=== PATIENT | male | born 1950 | race Caucasian/White ===

== ENCOUNTER 2018-04-06 02:14 | Outpatient (CLI) | payer MEDICARE ==
[~2018-04-06 02:14] MED LIST: ASPI-529 PO; FLUT1DIS4 INH; GLIP10TA11 PO; INSU100V12 SQ; METF-436 PO; METO100T7 PO; PIOG15TA8 PO; SIMV20TA5 PO
== END 2018-04-06 23:59 | disposition home or self-care (01) ==
LOC: DIABETIC 02:14
PROVIDERS: ATTEND Specialist
DX: E11.65 Type 2 diabetes mellitus with hyperglycemia (principal); J45.909 Unspecified asthma, uncomplicated; Z79.899 Other long term (current) drug therapy; Z79.82 Long term (current) use of aspirin
CPT/HCPCS: G0108

== ENCOUNTER 2018-07-07 03:22 | Outpatient (CLI) | payer MEDICARE ==
[~2018-07-07 03:22] MED LIST changes: +HYDR-3965 PO
== END 2018-07-07 23:59 | disposition home or self-care (01) ==
LOC: DIABETIC 03:22
PROVIDERS: ATTEND Specialist
DX: E11.65 Type 2 diabetes mellitus with hyperglycemia (principal); I25.2 Old myocardial infarction; J45.909 Unspecified asthma, uncomplicated; Z79.84 Long term (current) use of oral hypoglycemic drugs; Z79.4 Long term (current) use of insulin
CPT/HCPCS: G0108

== ENCOUNTER 2019-09-28 08:38 | Inpatient (IN) | payer MEDICARE ==
[~2019-09-28] VITALS: Ht 167.6 cm; Wt 97.7 kg
[~2019-09-28 08:38] MED LIST changes: -HYDR-3965 PO; +SIMV-42 PO; -SIMV20TA5 PO
--- NOTE | 2019-09-28 08:55 | NUR ---
EKG EVALUATED BY MD FREGOSO, PT STATUS CHANGED TO LEVEL 2 AND TO HAVE REPEAT EKG. PT TO BE ROOMED IN BED 5
[2019-09-28] MEDS ORDERED: albuterol 2.5 MG/3 ML nebule CONTNEB PRN ×2 (09:10→13:00)
[2019-09-28] MEDS ORDERED: furosemide 10 MG/1 ML 10ml inj IV ONE (09:10)
[2019-09-28] MEDS ORDERED: acetaminophen 325mg tablet PO ONE ×2 (09:15)
[2019-09-28 09:22] LABS: BASOPHILS % (AUTO) 0.5 % (0-1); EOSINOPHILS % (AUTO) 0.4 % (0-6); HEMATOCRIT 45.3 % (42.0-52.0); HEMOGLOBIN 15.8 g/dl (14.0-17.9); LYMPHOCYTES # (AUTO) 0.5 X10'3 (1.1-4.8); MEAN CORPUSCULAR HEMOGLOBIN 30.3 PG (27.0-31.0); MEAN CORPUSCULAR HGB CONC 34.8 g/dL (33.0-36.5); MEAN CORPUSCULAR VOLUME 87.1 FL (78-98); MEAN PLATELET VOLUME 8.2 FL (7.4-10.4); MONOCYTES # (AUTO) 0.8 X10'3 (0-0.9); MONOCYTES % (AUTO) 9.1 % (2-12); NEUTROPHILS # (AUTO) 7.1 X10'3 (1.8-7.7); PLATELET COUNT 157 X10'3 (140-440); RED CELL DISTRIBUTION WIDTH 14.3 % (11.5-14.5); WHITE BLOOD COUNT 8.5 X10'3 (4.5-11.0)
[2019-09-28 09:37] LABS: ALANINE AMINOTRANSFERASE 57 U/L (12-78); ALBUMIN/GLOBULIN RATIO 1.3 (1.1-1.5); ALKALINE PHOSPHATASE 59 IU/L (46-116); ANION GAP 12 (8-16); ASPARTATE AMINO TRANSFERASE 30 U/L (10-37); BILIRUBIN,TOTAL 0.8 MG/DL (0.1-1.0); BLOOD UREA NITROGEN 12 MG/DL (7-18); BUN/CREATININE RATIO 11.4 (5.4-32.0); CALCIUM 8.8 MG/DL (8.5-10.1); CHLORIDE 105 MMOL/L (99-107); CREATININE 1.05 MG/DL (0.60-1.10); GLUCOSE 170 MG/DL (70-104); POTASSIUM 3.8 MMOL/L (3.5-5.1); SODIUM 143 MMOL/L (135-145); TOTAL CARBON DIOXIDE 26.5 MMOL/L (24-32); TOTAL PROTEIN 7.2 G/DL (6.4-8.2); eGFR 70 ML/MIN
[2019-09-28] MEDS ORDERED: CefTRIAXone/D5W-Rocephin 1gm 50 ML IV ONE (09:40)
[2019-09-28] MEDS ORDERED: normal saline 1000ml 1,000 ML IV ONE (09:42)
[2019-09-28] MEDS ORDERED: oseltamivir phos 75mg capsule PO ONE (12:55)
[2019-09-28] MEDS ORDERED: acetaminophen 325mg tablet PO PRN ×2 (13:20)
[2019-09-28] MEDS ORDERED: magnesium 4gm in 100ml NS 100 ML IV PRN (13:20)
[2019-09-28] MEDS ORDERED: metoclopramide 5 mg/ml inj IV PRN (13:20)
[2019-09-28] MEDS ORDERED: acetaminophen 650mg rectal suppository RC PRN (13:20)
[2019-09-28] MEDS ORDERED: HYDROcodone/acetaminophen 10/325mg tab PO PRN (13:20)
[2019-09-28] MEDS ORDERED: magnesium 2GM in 50ml NS 50 ML IV PRN (13:20)
[2019-09-28] MEDS ORDERED: ondansetron/PF 4mg/2ml inj IV PRN (13:20)
[2019-09-28] MEDS ORDERED: magnesium hydroxide 30ml (MOM) UD suspension PO PRN (13:20)
[2019-09-28] MEDS ORDERED: HYDROcodone/acetaminophen 5mg/325mg tablet PO PRN (13:20)
[2019-09-28] MEDS ORDERED: potassium Cl 20 mEq SR tablet PO PRN (13:20)
[2019-09-28] MEDS ORDERED: potassium CL 10mEq/100ml bag 100 ML IV PRN ×2 (13:20)
[2019-09-28] MEDS ORDERED: magnesium Cl slow-release 64mg tablet PO PRN (13:20)
[2019-09-28] MEDS ORDERED: mag hydrox/Alum hydrox/simeth 30ml oral suspension PO PRN (13:20)
[2019-09-28] MEDS ORDERED: bisacodyl 10mg suppository rectal RC PRN (13:20)
[2019-09-28] MEDS ORDERED: ATOR-2 PO (13:27)
[2019-09-28] MEDS: normal saline 1000ml 1,000 ML IV SCH ×2 (13:46→22:00)
--- NOTE | 2019-09-28 14:00 | NUR ---
Report received on patient in ED5 from Carmen MUELLER, patient to be admitted to PCU 3009. Report received and all questions answered. Awaiting patient arrival on unit.
--- NOTE | 2019-09-28 14:13 | NUR ---
Patient admitted to PCU 3009. at bedside with patient. Patient was able to stand and transfer from ED gurney to bed with 1 person assist. Placed in droplet precautions. Patient oriented to room and call light use. Admit VS taken, stable at this time. 2 RN skin check performed, MRSA swab taken. IV fluids infusing at ordered rate. Patient has no complaints at this time, will continue to monitor.
[2019-09-28 14:15] VITALS: BP 142/44
--- NOTE | 2019-09-28 16:16 | NUR ---
Paged hospitalist, Dr. Boyle, regarding patient. PAGER ID: [phone] MESSAGE: Cheri delatorre [phone]. RE Keyla Mukherjee9. Pt very wheezy/SOB, can we reorder neb treatments for him? Thanks!
--- NOTE | 2019-09-28 16:26 | NUR ---
Patient had EKG ordered for 1447, was in process of admitting patient to unit. EKG was not performed, paged psychology tech at this time to obtain EKG.
--- NOTE | 2019-09-28 16:27 | NUR ---
Paged RT regarding patient, has PRN nebs ordered, paged RT to come administer.
--- NOTE | 2019-09-28 16:43 | NUR ---
Paged hospitalist, Dr. Boyle, regarding patient. PAGER ID: [phone] MESSAGE: Cheri Orozco [phone]. RE Keyla Muhkerjee9. Pt has hx of DM2, HgbA1c 6.2 here. Did you want to start him on the DM protocol? Thanks!
[2019-09-28] MEDS: ipratropium/albuterol 3ml nebule NEB PRN (16:52)
--- NOTE | 2019-09-28 16:59 | NUR ---
Patient has had two small episodes of emesis since arriving on unit, offered patient Zofran multiple times and he has declined medications at this time. Will continue to monitor.
[2019-09-28] MEDS ORDERED: MESSAGE TO PHARMACY PO ONE (17:05)
[2019-09-28] MEDS ORDERED: glucagon, human recombinant 1mg kit SUBCUT PRN (17:05)
[2019-09-28] MEDS ORDERED: dextrose ORAL solution 15 GM/59 ML bottle PO PRN ×2 (17:05)
[2019-09-28] MEDS ORDERED: dextrose 50%-water 50ml dispensing syringe IV PRN ×2 (17:05)
[2019-09-28 18:00] VITALS: BP 126/48
--- NOTE | 2019-09-28 18:20 | NUR ---
Patient in room PCU 3009. I have received report from Cheri MUELLER and had the opportunity to ask questions and assume patient care.
--- NOTE | 2019-09-28 18:35 | NUR ---
Problems reprioritized. Patient report given, questions answered & plan of care reviewed with Boaz RN.
[2019-09-28] MEDS: ipratropium/albuterol 3ml nebule NEB SCH ×2 (19:22→23:11)
[2019-09-28] MEDS: K and/or MAG REPLACEMENT MC SCH (20:00)
[2019-09-28] MEDS: insulin glargine (Lantus) pen - multi-dose SQ SCH (21:00)
[2019-09-28] MEDS ORDERED: temazepam 15mg capsule PO PRN (21:00)
[2019-09-28] MEDS ORDERED: insulin glargine (Lantus) pen - multi-dose SQ SCH (21:00)
[2019-09-28] MEDS: aspirin 81mg tablet.DR PO SCH (21:59)
[2019-09-28] MEDS: oseltamivir phos 75mg capsule PO SCH (21:59)
[2019-09-28 22:00] VITALS: BP 139/60
[2019-09-29 02:00] VITALS: BP 146/72
[2019-09-29] MEDS: ipratropium/albuterol 3ml nebule NEB PRN (02:48)
[2019-09-29 06:00] VITALS: BP 143/64
--- NOTE | 2019-09-29 06:13 | NUR ---
Problems reprioritized. Patient report given, questions answered & plan of care reviewed with Cheri MUELLER.
--- NOTE | 2019-09-29 06:20 | NUR ---
Problems reprioritized. Patient report given, questions answered & plan of care reviewed with Patricia MUELLER. Addendum: 09/29/19 at 0620 by Boaz Rea RN Disregard this note.
--- NOTE | 2019-09-29 06:21 | NUR ---
Patient in room PCU 3009. I have received report from Boaz MUELLER and had the opportunity to ask questions and assume patient care. Patient laying in bed, no signs of distress, at bedside. No complaints at this time, IV NS infusing at ordered rate, will continue to monitor.
[2019-09-29 06:24] LABS: BASOPHILS % (AUTO) 0.4 % (0-1); EOSINOPHILS % (AUTO) 0.1 % (0-6); HEMATOCRIT 38.7 % (42.0-52.0); HEMOGLOBIN 13.7 g/dl (14.0-17.9); LYMPHOCYTES # (AUTO) 0.7 X10'3 (1.1-4.8); LYMPHOCYTES % (AUTO) 15.5 % (21-51); MEAN CORPUSCULAR HGB CONC 35.5 g/dL (33.0-36.5); MEAN CORPUSCULAR VOLUME 87.2 FL (78-98); MEAN PLATELET VOLUME 8.1 FL (7.4-10.4); MONOCYTES # (AUTO) 0.5 X10'3 (0-0.9); MONOCYTES % (AUTO) 10.7 % (2-12); NEUTROPHILS # (AUTO) 3.5 X10'3 (1.8-7.7); NEUTROPHILS % (AUTO) 73.3 % (42-75); PLATELET COUNT 125 X10'3 (140-440); RED BLOOD COUNT 4.43 X10'6 (4.70-6.10); WHITE BLOOD COUNT 4.7 X10'3 (4.5-11.0)
[2019-09-29 06:36] LABS: ALANINE AMINOTRANSFERASE 48 U/L (12-78); ALBUMIN 3.2 G/DL (3.4-5.0); ALBUMIN/GLOBULIN RATIO 1.1 (1.1-1.5); ALKALINE PHOSPHATASE 47 IU/L (46-116); ANION GAP 9 (8-16); ASPARTATE AMINO TRANSFERASE 30 U/L (10-37); BILIRUBIN,TOTAL 0.8 MG/DL (0.1-1.0); BLOOD UREA NITROGEN 10 MG/DL (7-18); BUN/CREATININE RATIO 10.6 (5.4-32.0); CALCIUM 8.2 MG/DL (8.5-10.1); CHLORIDE 105 MMOL/L (99-107); CHOL/HDL RATIO 2.8 (0.00-4.99); CHOLESTEROL 69 MG/DL (0-200); CREATININE 0.94 MG/DL (0.60-1.10); GLUCOSE 187 MG/DL (70-104); HDL CHOLESTEROL 25 MG/DL (35-60); LDL CHOLESTEROL 32 MG/DL (50-100); MAGNESIUM 1.5 MG/DL (1.5-2.4); PHOSPHORUS 3.3 MG/DL (2.3-4.5); POTASSIUM 3.4 MMOL/L (3.5-5.1); SODIUM 140 MMOL/L (135-145); TOTAL CARBON DIOXIDE 25.6 MMOL/L (24-32); TOTAL PROTEIN 6.2 G/DL (6.4-8.2); TRIGLYCERIDES 70 MG/DL (20-135); eGFR 80 ML/MIN
[2019-09-29] MEDS: ipratropium/albuterol 3ml nebule NEB SCH ×5 (06:53→23:34)
[2019-09-29] MEDS: CefTRIAXone/D5W-Rocephin 1gm 50 ML IV SCH (07:33)
[2019-09-29] MEDS: oseltamivir phos 75mg capsule PO SCH ×2 (07:35→19:22)
[2019-09-29] MEDS: aspirin 81mg tablet.DR PO SCH ×2 (07:36→19:22)
[2019-09-29] MEDS: metoprolol succinate 25mg (24-HOUR) SR. Tablet PO SCH (07:37)
[2019-09-29] MEDS: enoxaparin 40mg/0.4ml syringe SQ SCH (07:37)
[2019-09-29] MEDS: potassium Cl 20 mEq SR tablet PO PRN ×3 (07:49→21:46)
[2019-09-29] MEDS: K and/or MAG REPLACEMENT MC SCH ×2 (07:49→20:00)
[2019-09-29] MEDS: insulin Lispro (HumaLOG) vial - multi-dose SQ SCH ×2 (08:56→19:25)
[2019-09-29] MEDS: normal saline 1000ml 1,000 ML IV SCH ×2 (09:04→22:47)
--- NOTE | 2019-09-29 09:04 | NUR ---
NS bag would not scan, IV NS infusing at 100mL/hr
[2019-09-29 11:00] VITALS: BP 124/65
[2019-09-29 15:00] VITALS: BP 134/66
--- NOTE | 2019-09-29 15:30 | NUR ---
Call light in bathroom went off, went into bathroom to find patient on the floor, being held up by . Patient on the ground, propped up against the wall. He is awake, alert, denies hitting his head and denies any other injury. Patient assisted back to bed by myself and other staff, VS taken and stable: Temp 99.1 Oral, HR 84, RR 18, BP 134/74, SpO2 98% on 2L NC. No complaints of pain, placed back in bed and will continue to monitor patient. MD notified.
--- NOTE | 2019-09-29 15:31 | NUR ---
PAGER ID: [phone] MESSAGE: [phone] AYDEN FELL IN SHOWER. HE IS UNHURT. AMISHA SPARKS
[2019-09-29 18:00] VITALS: BP 116/77
--- NOTE | 2019-09-29 18:15 | NUR ---
Problems reprioritized. Patient report given, questions answered & plan of care reviewed with Reyna MUELLER. Pt sitting in bed, stable at time of transfer report.
--- NOTE | 2019-09-29 18:23 | NUR ---
Patient in room PCU 3009. I have received report from Cheri Baires RN and had the opportunity to ask questions and assume patient care. Patient is in bed talking on the phone, is at bedside. Will continue to monitor.
[2019-09-29] MEDS: lactobacillus rhamnosus 10,000 MMU CELLS/CAPSULE PO SCH (19:22)
[2019-09-29] MEDS: insulin glargine (Lantus) pen - multi-dose SQ SCH (21:00)
[2019-09-29 23:00] VITALS: BP 129/65
[2019-09-30 03:00] VITALS: BP 146/86
[2019-09-30 06:00] VITALS: BP 137/68
--- NOTE | 2019-09-30 06:00 | NUR ---
Patient in room PCU 3009. I have received report from Reyna MUELLER and had the opportunity to ask questions and assume patient care.
--- NOTE | 2019-09-30 06:07 | NUR ---
Problems reprioritized. Patient report given, questions answered & plan of care reviewed with Kyler MUELLER.
[2019-09-30] MEDS: ipratropium/albuterol 3ml nebule NEB SCH ×2 (07:14→11:04)
[2019-09-30] MEDS: K and/or MAG REPLACEMENT MC SCH (08:00)
[2019-09-30] MEDS: lactobacillus rhamnosus 10,000 MMU CELLS/CAPSULE PO SCH (08:29)
[2019-09-30] MEDS: CefTRIAXone/D5W-Rocephin 1gm 50 ML IV SCH (08:29)
[2019-09-30] MEDS: aspirin 81mg tablet.DR PO SCH (08:30)
[2019-09-30] MEDS: oseltamivir phos 75mg capsule PO SCH (08:30)
[2019-09-30] MEDS: enoxaparin 40mg/0.4ml syringe SQ SCH (08:31)
[2019-09-30] MEDS: metoprolol succinate 25mg (24-HOUR) SR. Tablet PO SCH (08:31)
[2019-09-30] MEDS: normal saline 1000ml 1,000 ML IV SCH (08:32)
[2019-09-30] MEDS: insulin Lispro (HumaLOG) vial - multi-dose SQ SCH ×2 (08:40→13:40)
[2019-09-30 10:13] LABS: BASOPHILS % (AUTO) 0.4 % (0-1); EOSINOPHILS % (AUTO) 1.4 % (0-6); HEMATOCRIT 39.9 % (42.0-52.0); LYMPHOCYTES # (AUTO) 0.8 X10'3 (1.1-4.8); LYMPHOCYTES % (AUTO) 23.2 % (21-51); MEAN CORPUSCULAR HEMOGLOBIN 30.7 PG (27.0-31.0); MEAN CORPUSCULAR VOLUME 87.6 FL (78-98); MEAN PLATELET VOLUME 8.3 FL (7.4-10.4); MONOCYTES # (AUTO) 0.4 X10'3 (0-0.9); MONOCYTES % (AUTO) 12.1 % (2-12); NEUTROPHILS # (AUTO) 2.1 X10'3 (1.8-7.7); NEUTROPHILS % (AUTO) 62.9 % (42-75); PLATELET COUNT 117 X10'3 (140-440); RED BLOOD COUNT 4.55 X10'6 (4.70-6.10); RED CELL DISTRIBUTION WIDTH 14.1 % (11.5-14.5); WHITE BLOOD COUNT 3.3 X10'3 (4.5-11.0)
[2019-09-30 10:15] LABS: ALANINE AMINOTRANSFERASE 61 U/L (12-78); ALBUMIN 3.2 G/DL (3.4-5.0); ALBUMIN/GLOBULIN RATIO 1.1 (1.1-1.5); ALKALINE PHOSPHATASE 40 IU/L (46-116); ANION GAP 10 (8-16); ASPARTATE AMINO TRANSFERASE 46 U/L (10-37); BILIRUBIN,TOTAL 0.6 MG/DL (0.1-1.0); BLOOD UREA NITROGEN 10 MG/DL (7-18); CALCIUM 8.1 MG/DL (8.5-10.1); CHLORIDE 104 MMOL/L (99-107); CREATININE 0.83 MG/DL (0.60-1.10); GLUCOSE 195 MG/DL (70-104); MAGNESIUM 1.7 MG/DL (1.5-2.4); PHOSPHORUS 2.8 MG/DL (2.3-4.5); POTASSIUM 3.7 MMOL/L (3.5-5.1); SODIUM 139 MMOL/L (135-145); TOTAL CARBON DIOXIDE 25.1 MMOL/L (24-32); TOTAL PROTEIN 6.2 G/DL (6.4-8.2); eGFR > 90 ML/MIN
[2019-09-30 11:00] VITALS: BP 139/63
[2019-09-30] MEDS ORDERED: TAM75C PO (11:45)
[2019-09-30] MEDS ORDERED: IPRA3AMP9 NEB (11:47)
--- NOTE | 2019-09-30 14:50 | NUR ---
Pt DC'd home with . IV removed, canula intact. Tele-box removed and returned to tele-tech. Pt alert and oriented at DC. Vitals WNL. DC paperwork gone over with Pt and , allowed both to ask questions concerning DC and then answered them. New prescriptions called into [facility] in [place]. Nebulizer dropped off by Tamia sandoval. Home health PT will call Pt at home either thursday10/01/19 or Thursday10/03/19 to work with Pt. Pt stated that he will make an appt with his PCP within 1 week of DC. Pt's belongings gathered and sent with Pt. Pt wheeled down to [facility] in wheelchair by nursing techn and left in private vehicle with .
== END 2019-09-30 15:24 | disposition home or self-care (01) | DRG 193 ==
LOC: ER 08:39 → ED HOLD 13:20 → PCU 3S 14:15
PROVIDERS: ADMIT Family Medicine; ATTEND Family Medicine
DX: J10.00 Influenza due to other identified influenza virus with unspecified type of pneumonia (principal); J96.01 Acute respiratory failure with hypoxia; J15.9 Unspecified bacterial pneumonia; E11.9 Type 2 diabetes mellitus without complications; E78.5 Hyperlipidemia, unspecified; E87.6 Hypokalemia; G47.33 Obstructive sleep apnea (adult) (pediatric); I10 Essential (primary) hypertension; I25.10 Atherosclerotic heart disease of native coronary artery without angina pectoris; N40.0 Benign prostatic hyperplasia without lower urinary tract symptoms; Z96.612 Presence of left artificial shoulder joint; R00.0 Tachycardia, unspecified; Z87.891 Personal history of nicotine dependence; Z95.1 Presence of aortocoronary bypass graft; Z79.82 Long term (current) use of aspirin; Z79.899 Other long term (current) drug therapy; Z79.4 Long term (current) use of insulin
CPT/HCPCS: 36415; 71045; 71046; 80053; 80061; 82948; 83036; 83605; 83735; 84100; 84484; 85025; 87040; 87070; 87081; 87502; 87503; 93005; 94640; 94667; 94668; 94760; 96365; 97116; 97161; 97530; 99285; G0378; J0696; J1650; J1815; J7030

== ENCOUNTER 2021-06-04 05:33 | Inpatient (IN) | payer MEDICARE ==
[2021-05-28 12:46] LABS: BASOPHILS # (AUTO) 0.1 X10'3 (0-0.2); BASOPHILS % (AUTO) 1.2 % (0-1); EOSINOPHILS # (AUTO) 0.2 X10'3 (0-0.9); EOSINOPHILS % (AUTO) 2.1 % (0-6); LYMPHOCYTES # (AUTO) 2.1 X10'3 (1.1-4.8); LYMPHOCYTES % (AUTO) 21.7 % (21-51); MEAN CORPUSCULAR HEMOGLOBIN 29.1 PG (27.0-31.0); MEAN CORPUSCULAR HGB CONC 33.5 g/dL (33.0-36.5); MEAN PLATELET VOLUME 7.9 FL (7.4-10.4); MONOCYTES # (AUTO) 0.8 X10'3 (0-0.9); MONOCYTES % (AUTO) 8.6 % (2-12); NEUTROPHILS # (AUTO) 6.4 X10'3 (1.8-7.7); NEUTROPHILS % (AUTO) 66.4 % (42-75); PRE OP HEMATOCRIT 44.2 % (42.0-52.0); PRE OP HEMOGLOBIN 14.8 g/dL (14.0-17.9); PRE OP PLATELET COUNT 286 X10'3 (140-440); RED BLOOD COUNT 5.08 X10'6 (4.70-6.10); RED CELL DISTRIBUTION WIDTH 14.2 % (11.5-14.5)
[2021-05-28 13:02] LABS: ALBUMIN 3.7 G/DL (3.4-5.0); ALKALINE PHOSPHATASE 72 IU/L (46-116); BLOOD UREA NITROGEN 12 MG/DL (7-18); BUN/CREATININE RATIO 11.3 (5.4-32.0); CALCIUM 8.8 MG/DL (8.5-10.1); CHLORIDE 105 MMOL/L (99-107); CREATININE 1.06 MG/DL (0.60-1.10); PRE OP ALT 68 U/L (30-65); PRE OP ANION GAP 10 (8-16); PRE OP AST 27 U/L (10-37); PRE OP BILIRUB, TOTAL 0.9 MG/DL (0.0-1.0); PRE OP GLUCOSE 145 MG/DL (70-104); PRE OP POTASSIUM 4.3 MMOL/L (3.4-5.1); PRE OP SODIUM 142 MMOL/L (135-145); TOTAL CARBON DIOXIDE 27.5 MMOL/L (24-32); TOTAL PROTEIN 7.5 G/DL (6.4-8.2); eGFR 69 ML/MIN
[~2021-06-04] VITALS: Ht 167.6 cm; Wt 97.7 kg
[2021-06-04] VITALS (18 sets, daily range): BP systolic 101–140; BP diastolic 46–87
[~2021-06-04 05:33] MED LIST changes: +ATOR-2 PO; +DOCUMENT DATE & TIME OF BETA-BLOCKER PO ONE; -FLUT1DIS4 INH; -GLIP10TA11 PO; -INSU100V12 SQ; +LOSA50TA3 PO; -PIOG15TA8 PO; -SIMV-42 PO; +TEST75GE10 TOP; +albuterol 2.5 MG/3 ML nebule NEB ONE; +ceFAZolin 2gm in dextrose, iso 50 ML IV ONE; +famotidine 20mg tablet PO ONE; +ringers solution, lacted 1,000 ML IV SCH; +tranexamic acid 650mg tablet PO ONE; +vancomycin 1,500 MG in NS 300ml IV soln IV ONE
[2021-06-04] MEDS ORDERED: LIDOcaine 1% (10mg/ml) 2ml vial ONE (05:51)
[2021-06-04] MEDS ORDERED: ketorolac trometh. 30mg/ml inj. ONE (06:39)
[2021-06-04] MEDS ORDERED: ROPIVAcaine 0.5% (5mg/ml) 30ml vial ONE ×2 (06:39→08:38)
[2021-06-04] MEDS ORDERED: tetracaine 1% (10mg/ml) pres. free inj. ONE (07:05)
[2021-06-04] MEDS ORDERED: cloNIDine hcl/PF 100mcg/ml inj ONE (07:05)
[2021-06-04] MEDS ORDERED: midazolam 1 mg/ML 2ml injection ONE (07:06)
[2021-06-04] MEDS ORDERED: FLUT1DIS4 INH (07:10)
[2021-06-04] MEDS ORDERED: hydrALAZINE 20mg/ml inj. IV PRN (08:00)
[2021-06-04] MEDS ORDERED: proCHLORperazine 10 MG/2 ml inj IV PRN (08:00)
[2021-06-04] MEDS ORDERED: morphine 2 MG/ML inj. syringe IV PRN (08:00)
[2021-06-04] MEDS ORDERED: ringers solution, lacted 1,000 ML IV SCH (08:00)
[2021-06-04] MEDS ORDERED: acetaminophen 1,000mg/100ml IV 100 ML IV PRN (08:00)
[2021-06-04] MEDS ORDERED: labetalol 20mg/4ml (5mg/ml) syringe IV PRN (08:00)
[2021-06-04] MEDS ORDERED: ondansetron/PF 4mg/2ml inj IV PRN ×2 (08:00→09:25)
[2021-06-04] MEDS ORDERED: morphine 4 MG/ML inj SYRINge IV PRN (08:00)
[2021-06-04] MEDS ORDERED: meperidine/PF 25mg/ml syringe IV PRN ×3 (08:00)
[2021-06-04] MEDS ORDERED: dexamethasone sod phosphate 4mg/ml inj. ONE (08:38)
[2021-06-04] MEDS ORDERED: 0.9 % SODIUM CHLORIDE 10 ML VIAL ONE ×2 (08:38)
[2021-06-04] MEDS ORDERED: propofol inj 20 ML IV ONE ×3 (08:38)
--- NOTE | 2021-06-04 09:05 | NUR ---
Received from OR via , accompanied by Anesthesiologist and report given by Anesthesiolgist. PATIENT WAKING UP DENIES PAIN ,V/S WNL, NEUROVASCULAR CHECKS WNL, DRESSING TO LEFT KNEE CDI. 18G LUE.
[2021-06-04] MEDS ORDERED: HYDROmorphone 1 mg/ml syringe IV PRN (09:25)
[2021-06-04] MEDS ORDERED: acetaminophen 325mg tablet PO PRN (09:25)
[2021-06-04] MEDS ORDERED: magnesium hydroxide 30ml (MOM) UD suspension PO PRN (09:25)
[2021-06-04] MEDS ORDERED: diphenhydrAMINE 25mg capsule PO PRN ×2 (09:25)
[2021-06-04] MEDS ORDERED: bisacodyl 10mg suppository rectal RC PRN (09:25)
[2021-06-04] MEDS ORDERED: HYDROmorphone inj. 0.5 MG/0.5 ML DISP.SYRIN IV PRN (09:25)
[2021-06-04] MEDS ORDERED: oxyCODONE IR 5mg (immed. release) tablet PO PRN (09:25)
--- NOTE | 2021-06-04 09:55 | NUR ---
PATIENT A&OX4, DENIES PAIN ,V/S WNL, NEUROVASCULAR CHECKS WNL, SENSATIONS T-11, DRESSING TO LEFT KNEE CDI. 18G LUE. BG 89. TAKEN TO 345B WITH ALL BELONGINGS AND HOOKED UP TO MONITORS IN ROOM AND REPORT GIVEN TO DANIELA MUELLER WHO HAS TAKEN OVER PATIENT CARE.
[2021-06-04] MEDS: potassium cl 20mEq in 1/2 NS 1,000 ML IV SCH ×3 (11:00→21:01)
[2021-06-04] MEDS: gabapentin 300mg capsule PO SCH ×2 (13:39→20:57)
[2021-06-04] MEDS: acetaminophen 325mg tablet PO SCH ×2 (13:47→20:55)
[2021-06-04] MEDS: ceFAZolin/D5W- 1GM premix 50 ML IV SCH (16:38)
--- NOTE | 2021-06-04 17:41 | NUR ---
Pt. straight cathed. 600 ml out. Tolerated well
--- NOTE | 2021-06-04 18:22 | NUR ---
Gave report to Kathya MUELLER.
--- NOTE | 2021-06-04 18:30 | NUR ---
Patient in room [facility] 345. I have received report from Lit Simmons and had the opportunity to ask questions and assume patient care. with ABAD Ching. Addendum: 06/04/21 at 1921 by Jason Joyner RN Amended: Links added.
[2021-06-04] MEDS ORDERED: vancomycin/NS 1 GM ADD-VANTAGE 250 ML IV SCH (20:00)
[2021-06-04] MEDS ORDERED: aspirin 81mg tab.chew PO SCH (20:00)
[2021-06-04] MEDS: metFORMIN 500mg tablet PO SCH (20:58)
[2021-06-04] MEDS ORDERED: sennosides 8.6mg tablet PO SCH (21:00)
[2021-06-04] MEDS ORDERED: losartan 50mg tablet PO SCH (21:00)
[2021-06-04] MEDS ORDERED: glucagon, human recombinant 1mg kit SUBCUT PRN (21:20)
[2021-06-04] MEDS ORDERED: insulin Lispro (HumaLOG) vial - multi-dose SQ SCH (21:20)
[2021-06-04] MEDS ORDERED: dextrose ORAL solution 15 GM/59 ML bottle PO PRN ×2 (21:20)
[2021-06-04] MEDS ORDERED: dextrose 50%-water 50ml dispensing syringe IV PRN ×2 (21:20)
[2021-06-04] MEDS ORDERED: temazepam 15mg capsule PO PRN (21:20)
[2021-06-05] MEDS: ceFAZolin/D5W- 1GM premix 50 ML IV SCH (00:34)
[2021-06-05] MEDS: oxyCODONE IR 5mg (immed. release) tablet PO PRN ×2 (02:42→06:45)
[2021-06-05] MEDS: acetaminophen 325mg tablet PO SCH ×3 (02:43→13:31)
[2021-06-05 04:43] VITALS: BP 104/68
[2021-06-05] MEDS: potassium cl 20mEq in 1/2 NS 1,000 ML IV SCH (05:31)
[2021-06-05 06:15] LABS: BASOPHILS % (AUTO) 0.4 % (0-1); EOSINOPHILS % (AUTO) 0.2 % (0-6); HEMATOCRIT 35.7 % (42.0-52.0); HEMOGLOBIN 12.1 g/dl (14.0-17.9); LYMPHOCYTES # (AUTO) 1.3 X10'3 (1.1-4.8); LYMPHOCYTES % (AUTO) 11.7 % (21-51); MEAN CORPUSCULAR HGB CONC 33.8 g/dL (33.0-36.5); MEAN PLATELET VOLUME 8.3 FL (7.4-10.4); MONOCYTES # (AUTO) 0.9 X10'3 (0-0.9); MONOCYTES % (AUTO) 8.4 % (2-12); NEUTROPHILS # (AUTO) 8.5 X10'3 (1.8-7.7); NEUTROPHILS % (AUTO) 79.3 % (42-75); PLATELET COUNT 216 X10'3 (140-440); RED BLOOD COUNT 4.15 X10'6 (4.70-6.10); RED CELL DISTRIBUTION WIDTH 14.2 % (11.5-14.5); WHITE BLOOD COUNT 10.8 X10'3 (4.5-11.0)
--- NOTE | 2021-06-05 06:20 | NUR ---
Problems reprioritized. Patient report given, questions answered & plan of care reviewed with AMI Skaggs. Addendum: 06/05/21 at 0620 by Jason Joyner RN Amended: Links added.
[2021-06-05 06:42] LABS: CHLORIDE 106 MMOL/L (99-107); POTASSIUM 4.3 MMOL/L (3.5-5.1); SODIUM 140 MMOL/L (135-145)
[2021-06-05 06:50] LABS: ANION GAP 9 (8-16); TOTAL CARBON DIOXIDE 25.2 MMOL/L (24-32)
[2021-06-05 07:30] VITALS: BP 101/56
[2021-06-05] MEDS: gabapentin 300mg capsule PO SCH ×2 (07:40→13:30)
[2021-06-05] MEDS: metFORMIN 500mg tablet PO SCH (07:44)
[2021-06-05] MEDS ORDERED: TESTOSTERONE TP SCH (08:00)
[2021-06-05] MEDS ORDERED: metoprolol succinate 25mg (24-HOUR) SR. Tablet PO SCH (08:00)
[2021-06-05] MEDS ORDERED: atorvastatin 20mg tablet PO SCH (08:00)
[2021-06-05] MEDS ORDERED: aspirin 325mg tablet PO SCH (08:30)
--- NOTE | 2021-06-05 11:14 | NUR ---
Page sent to PT... [phone] Jim Mukherjee: please call when you can regarding this patient. thank you!
--- NOTE | 2021-06-05 12:16 | NUR ---
DM consult: Pt with T2DM, well controlled with A1c 6.6%, DM education not warranted at this time. Pt s/p left knee arthroplasty, seen at bedside for written and verbal protein education. Pt reports already having protein drinks at home to ensure adequate protein intake following discharge. Pt endorses a good appetite stating roughly with 90% PO intake at breakfast this morning and denies food allergies, difficulty chewing/swallowing, or constipation/diarrhea. RD contact information provided and pt encouraged to reach out for questions/food preferences. Will remain available. Addendum: 06/05/21 at [address] Amended: Links added.
[2021-06-05 13:00] VITALS: BP 122/68
--- NOTE | 2021-06-05 14:16 | NUR ---
Patient stable and appropriate for discharge home with his . IV removed, all belongings taken from room. All discharge instructions and education given and reviewed with patient. new prescription was given to patient pre-op. all questions answered.
[2021-06-05] MEDS ORDERED: celeCOXIB 100mg capsule PO SCH (20:00)
[2021-06-05] MEDS ORDERED: insulin glargine (Lantus) pen - multi-dose SQ SCH (21:00)
[2021-06-06] MEDS ORDERED: acetaminophen 325mg tablet PO PRN (09:25)
== END 2021-06-05 14:00 | disposition home or self-care (01) | DRG 470 ==
LOC: PAS IN 05:33 → UNDOADMIN 05:33 → PAS IN 09:27 → SUR 3N 10:15
PROVIDERS: ADMIT Orthopaedic Surgery; ATTEND Orthopaedic Surgery
PROC: 8E0YXBZ Computer Assisted Procedure of Lower Extremity (ICD-10-PCS; 2021-06-04)
PROC: 8E0Y0CZ Robotic Assisted Procedure of Lower Extremity, Open Approach (ICD-10-PCS; 2021-06-04)
PROC: 0SRC0JZ Replacement of Right Knee Joint with Synthetic Substitute, Open Approach (ICD-10-PCS; principal; 2021-06-04 07:04)
DX: M17.11 Unilateral primary osteoarthritis, right knee (principal)
CPT/HCPCS: 36415; 80051; 80053; 82948; 83036; 85025; 87081; 97116; 97161; 97530; A4215; A7000; C1776; G0378; J0690; J0735; J1100; J1815; J1885; J2001; J2250; J2704; J2795; J3370; J3480; J7040; J7120; U0003; U0005

== ENCOUNTER 2021-08-07 14:40 | Emergency (ER) | payer MEDICARE ==
[~2021-08-07] VITALS: Ht 167.6 cm; Wt 89.5 kg
[~2021-08-07 14:40] MED LIST changes: -DOCUMENT DATE & TIME OF BETA-BLOCKER PO ONE; +FLUT1DIS4 INH; -albuterol 2.5 MG/3 ML nebule NEB ONE; -ceFAZolin 2gm in dextrose, iso 50 ML IV ONE; -famotidine 20mg tablet PO ONE; -ringers solution, lacted 1,000 ML IV SCH; -tranexamic acid 650mg tablet PO ONE; -vancomycin 1,500 MG in NS 300ml IV soln IV ONE
[2021-08-07 15:04] VITALS: BP 149/80
[2021-08-07 15:44] LABS: BASOPHILS # (AUTO) 0.1 X10'3 (0-0.2); BASOPHILS % (AUTO) 1.3 % (0-1); EOSINOPHILS # (AUTO) 0.4 X10'3 (0-0.9); EOSINOPHILS % (AUTO) 3.9 % (0-6); HEMATOCRIT 41.6 % (42.0-52.0); LYMPHOCYTES # (AUTO) 1.5 X10'3 (1.1-4.8); LYMPHOCYTES % (AUTO) 15.6 % (21-51); MEAN CORPUSCULAR HEMOGLOBIN 28.9 PG (27.0-31.0); MEAN CORPUSCULAR HGB CONC 33.7 g/dL (33.0-36.5); MEAN CORPUSCULAR VOLUME 85.6 FL (78-98); MEAN PLATELET VOLUME 8.1 FL (7.4-10.4); MONOCYTES # (AUTO) 0.7 X10'3 (0-0.9); MONOCYTES % (AUTO) 7.6 % (2-12); NEUTROPHILS # (AUTO) 6.9 X10'3 (1.8-7.7); NEUTROPHILS % (AUTO) 71.6 % (42-75); PLATELET COUNT 213 X10'3 (140-440); RED BLOOD COUNT 4.86 X10'6 (4.70-6.10); RED CELL DISTRIBUTION WIDTH 15.8 % (11.5-14.5); WHITE BLOOD COUNT 9.6 X10'3 (4.5-11.0)
[2021-08-07 15:59] LABS: ALANINE AMINOTRANSFERASE 38 U/L (12-78); ALBUMIN 3.6 G/DL (3.4-5.0); ALBUMIN/GLOBULIN RATIO 1.1 (1.1-1.5); ALKALINE PHOSPHATASE 70 IU/L (46-116); ANION GAP 5 (8-16); ASPARTATE AMINO TRANSFERASE 14 U/L (10-37); BILIRUBIN,TOTAL 0.5 MG/DL (0.1-1.0); BLOOD UREA NITROGEN 7 MG/DL (7-18); BUN/CREATININE RATIO 8.1 (5.4-32.0); CALCIUM 9.1 MG/DL (8.5-10.1); CHLORIDE 109 MMOL/L (99-107); CREATININE 0.86 MG/DL (0.60-1.10); GLUCOSE 169 MG/DL (70-104); POTASSIUM 4.3 MMOL/L (3.5-5.1); SODIUM 146 MMOL/L (135-145); TOTAL CARBON DIOXIDE 31.6 MMOL/L (24-32); TOTAL PROTEIN 6.8 G/DL (6.4-8.2); eGFR 88 ML/MIN
[2021-08-07] MEDS ORDERED: predniSONE 20 mg tablet PO ONE (16:55)
[2021-08-07] MEDS: ipratropium/albuterol 3ml nebule NEB SCH ×2 (17:05→17:28)
[2021-08-07] MEDS ORDERED: ALBU8HFA PO (17:18)
[2021-08-07] MEDS ORDERED: AMOX-422 PO (17:18)
[2021-08-07] MEDS ORDERED: PRED20TA PO (17:18)
[2021-08-07] MEDS ORDERED: ipratropium/albuterol 3ml nebule NEB PRN (17:25)
[2021-08-07] MEDS ORDERED: ipratropium/albuterol 3ml nebule NEB SCH (19:00)
== END 2021-08-07 17:49 | disposition home or self-care (01) ==
LOC: ER 14:40
DX: J40 Bronchitis, not specified as acute or chronic (principal); Z20.822 Contact with and (suspected) exposure to COVID-19; R05.9 Cough, unspecified; R07.89 Other chest pain; R06.02 Shortness of breath; I25.10 Atherosclerotic heart disease of native coronary artery without angina pectoris; E11.9 Type 2 diabetes mellitus without complications; Z98.890 Other specified postprocedural states; Z79.2 Long term (current) use of antibiotics; Z79.82 Long term (current) use of aspirin; Z79.899 Other long term (current) drug therapy
CPT/HCPCS: 36415; 71045; 80053; 83880; 84484; 85025; 87502; 87503; 87635; 93005; 94640; 99285; C9803; J7512; 94760